=== PATIENT | male | born 2000 | race Caucasian/White ===

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

== ENCOUNTER 2019-09-27 16:38 | Emergency (ER) | payer OTHER ==
[~2019-09-27] VITALS: Ht 172.7 cm; Wt 99.8 kg
[~2019-09-27 16:38] MED LIST changes: +Keflex500 MG PO
== END 2019-09-27 17:53 | disposition home or self-care (01) ==
LOC: ER 16:38
DX: J11.1 Influenza due to unidentified influenza virus with other respiratory manifestations (principal); J45.909 Unspecified asthma, uncomplicated; Z87.891 Personal history of nicotine dependence
CPT/HCPCS: 71046; 99284-25

== ENCOUNTER 2019-10-23 14:18 | Emergency (ER) | payer OTHER ==
[~2019-10-23] VITALS: Ht 172.7 cm; Wt 95.2 kg
[2019-10-23] MEDS ORDERED: Mupirocin22 GM TOP (15:38)
[2019-10-23] MEDS ORDERED: CEPH500 PO (15:38)
== END 2019-10-23 16:20 | disposition home or self-care (01) ==
LOC: ER 14:18
DX: L02.811 Cutaneous abscess of head [any part, except face] (principal); J45.909 Unspecified asthma, uncomplicated; F17.200 Nicotine dependence, unspecified, uncomplicated
CPT/HCPCS: 10160; 99283-25

== ENCOUNTER 2022-12-15 19:01 | Emergency (ER) | payer OTHER ==
[~2022-12-15] VITALS: Ht 175.3 cm; Wt 93.0 kg
[~2022-12-15 19:01] MED LIST changes: +CEPH500 PO; +Mupirocin22 GM TOP
[2022-12-15 19:08] VITALS: BP 144/73
== END 2022-12-15 20:27 | disposition home or self-care (01) ==
LOC: ER 19:01
DX: L05.01 Pilonidal cyst with abscess (principal); J45.909 Unspecified asthma, uncomplicated; F17.210 Nicotine dependence, cigarettes, uncomplicated
CPT/HCPCS: 10060; 99282-25